=== PATIENT | female | born 1985 | race Hispanic/Latino ===

== ENCOUNTER 2018-01-29 04:06 | Emergency (ER) | payer SELFPAY ==
[2018-01-29] MEDS ORDERED: Ibuprofen 800 MG TAB ONE (04:56)
[2018-01-29] MEDS ORDERED: Adacel (T-DAP) 0.5 ML VIAL ONE (04:56)
[2018-01-29] MEDS ORDERED: Acetaminophen 500 MG TAB ONE (04:56)
--- NOTE | 2018-01-29 08:42 | RAD ---
THREE VIEWS RIGHT HAND: Comparison: None. History: Crush injury to the hand with pain and swelling. FINDINGS: Three views of the right hand shows no evidence of acute fracture or dislocation. There is a dressing on the distal aspect of the middle phalanx. No degenerative changes are seen. IMPRESSION: No evidence of acute osseous abnormality. POS: [facility]
== END 2018-01-29 05:40 | disposition home or self-care (01) ==
LOC: MADERS 04:06
DX: S61.212A Laceration without foreign body of right middle finger without damage to nail, initial encounter (principal); Z23 Encounter for immunization; W26.8XXA Contact with other sharp object(s), not elsewhere classified, initial encounter
CPT/HCPCS: 12001; 90471; 90715